=== PATIENT | female | born 1950 | race African-American/Black ===

== ENCOUNTER 2025-04-26 12:57 | Emergency (ER) | payer OTHER, MEDICAID ==
[~2025-04-26] VITALS: Ht 165.1 cm; Wt 86.0 kg
[~2025-04-26 12:57] MED LIST: ATORVASTATIN; BENICAR; CLONIDINE; FLUTICASONE; HCTZ; OMEPRAZOLE; RANITIDINE; SERTRALINE; SYMBICORT; TRAZODONE; TYLENOL #3; [UNRECOGNIZED DRUG - OTHER]
[2025-04-26 13:10] VITALS: TEMP 36.8; O2SAT 100
[2025-04-26] MEDS ORDERED: MUPI15CR11 TP (13:38)
[2025-04-26 13:56] VITALS: BP 179/62; PULSE 55; RESP 18; O2SAT 99
== END 2025-04-26 14:01 | disposition home or self-care (01) ==
LOC: ER 12:57
DX: H60.02 Abscess of left external ear (principal); E78.00 Pure hypercholesterolemia, unspecified; I10 Essential (primary) hypertension; Z79.51 Long term (current) use of inhaled steroids; Z88.0 Allergy status to penicillin
CPT/HCPCS: 99283

== ENCOUNTER 2025-10-06 10:16 | Emergency (ER) | payer MEDICARE, MEDICAID ==
[~2025-10-06] VITALS: Ht 165.1 cm; Wt 77.0 kg
[~2025-10-06 10:16] MED LIST changes: +MUPI15CR11 TP
[2025-10-06 10:43] VITALS: O2SAT 98
[2025-10-06] MEDS ORDERED: LIDO700A30 TP (12:50)
[2025-10-06] MEDS ORDERED: IBUP-1455 MT (12:50)
[2025-10-06] MEDS: IBUPROFEN 400MG TABLET PO ONE (13:29)
[2025-10-06] MEDS: LIDOCAINE 5% PATCH TOP STA (13:29)
[2025-10-06 13:37] VITALS: BP 145/60; PULSE 70; RESP 18; TEMP 36.8; O2SAT 98
== END 2025-10-06 13:40 | disposition home or self-care (01) ==
LOC: ER 10:16
DX: M79.671 Pain in right foot (principal); M79.672 Pain in left foot; M25.511 Pain in right shoulder; R32 Unspecified urinary incontinence; E78.00 Pure hypercholesterolemia, unspecified; I10 Essential (primary) hypertension; Z79.51 Long term (current) use of inhaled steroids; Z88.0 Allergy status to penicillin
CPT/HCPCS: 73620; 99283